=== PATIENT | male | born 1995 | race Caucasian/White ===

== ENCOUNTER 2019-01-08 05:28 | Emergency (ER) | payer SELFPAY ==
[2019-01-08] MEDS: KETOROLAC 30 MG INJ IM (05:53)
== END 2019-01-08 07:06 | disposition home or self-care (01) ==
LOC: FTE 05:28
DX: S80.02XA Contusion of left knee, initial encounter (principal); V43.52XA Car driver injured in collision with other type car in traffic accident, initial encounter
CPT/HCPCS: 73562; 96372; 99284-25